=== PATIENT | male | born 1980 | race Two or more races ===

== ENCOUNTER 2017-05-04 09:12 | Emergency (ER) | payer BC, OTHER ==
[~2017-05-04] VITALS: Ht 188 cm; Wt 99.8 kg
[~2017-05-04 09:12] MED LIST: IBUPROFEN600 MG ORAL; NORCO 5-325 TA1 EACH ORAL
[2017-05-04 09:21] VITALS: BP 160/107
[2017-05-04] MEDS ORDERED: Solu-MEDROL 125mg Inj IM ONE (09:45)
--- NOTE | 2017-05-04 09:47 | Emergency Room Report ---
History of Present Illness General Chief Complaint: Sore Throat Source: Patient Present Illness HPI Patient present with complaints of swelling to the back of the throat He felt that his uvula was been in usual he noticed a sensation today Patient was recently treated with azithromycin for possible bronchitis Denies any chest pain or shortness of breath He feels that the uvula is lower than usual he denies any difficulty breathing however felt that at nighttime there was increased flapping of that area Denies any neck pain Denies any recent travel Denies any other rash or new medication otherwise Allergies: Coded Allergies: PENICILLINS (Unverified Allergy, Unknown, 04/15/15) Patient History Past Medical History: see triage record Pertinent Family History: none Reviewed Nursing Documentation: PMH: Agreed, PSxH: Agreed Nursing Documentation-PMH Past Medical History: No History, Except For Review of Systems All Other Systems: negative except mentioned in HPI Physical Exam Vital Signs Date Time Temp Pulse Resp B/P (MAP) Pulse Ox O2 Delivery O2 Flow Rate FiO2 05/04/17 09:16 97.7 92 18 160/107 98 Sp02 EP Interpretation: reviewed, normal General Appearance: well appearing, no apparent distress Head: normocephalic, atraumatic Eyes: bilateral eye PERRL, bilateral eye EOMI ENT: other - Patient does have some pharyngeal erythema the uvula itself does appear mildly edematous, it does not appear to be in a angioedema type presentation however there is some change from baseline, airway is patent no signs of any stridor, Neck: supple Respiratory: normal inspection, lungs clear Cardiovascular #1: regular rate, rhythm Musculoskeletal: normal inspection Neurologic: alert, oriented x3, responsive Skin: no rash Medical Decision Making Diagnostic Impression: Primary Impression: Pharyngitis Additional Impression: Elongated uvula, acquired ER Course Given the history examined presentation there is sign of likely pharyngitis Causing some of the swelling and edema and the uvula, no obvious airway pathology is noted I do not suspect any obvious angioedema type presentation No signs of stridor Patient has had signs of peritonsillar abscess at this time will be treated with anti-inflammatories and steroids patient was placed on oral antibiotics and will have close outpatient followup Last Vital Signs Date Time Temp Pulse Resp B/P (MAP) Pulse Ox O2 Delivery O2 Flow Rate FiO2 05/04/17 09:21 97.7 18 160/107 98 05/04/17 09:16 92 Status: improved Disposition: HOME, SELF-CARE Condition: Improved Additional Instructions: Patient is provided with the discharge instructions notified to follow up with primary doctor in the next 2-3 days otherwise return to the er with any worsening symptoms. Please note that this report is being documented using [employer] technology. This can lead to erroneous entry secondary to incorrect interpretation by the dictating instrument. LUCI BRAGG D.O. May 04, 2017 09:47
[2017-05-04] MEDS ORDERED: RANITIDINE HCL150 MG ORAL (10:10)
[2017-05-04] MEDS ORDERED: PREDNISONE20 MG ORAL (10:10)
[2017-05-04] MEDS ORDERED: CLINDAMYCIN HC300 MG ORAL (10:11)
[2017-05-04 10:19] VITALS: BP 140/98
== END 2017-05-04 10:22 | disposition home or self-care (01) ==
LOC: EMR 10:02
DX: J02.9 Acute pharyngitis, unspecified (principal); Q38.6 Other congenital malformations of mouth; Z88.0 Allergy status to penicillin
CPT/HCPCS: 96372; 99284; J2930